=== PATIENT | male | born 1945 | race Caucasian/White ===

== ENCOUNTER 2016-05-11 17:39 | Emergency (ER) | payer MEDICARE, OTHER ==
[~2016-05-11] VITALS: Ht 182.9 cm; Wt 119.0 kg
[~2016-05-11 17:39] MED LIST: 1-ME1LIQ PO; ALBU8I INH; ASPI325T PO; ATEN-100 PO; ATOR40TA PO; AZEL0.05; CIAL5TAB PO; ENAL10TA7 PO; GABA300C3 PO; HYDR-3533 PO; LAMI250T PO; LANTUS2P SC; LOTRCRE TOP; MELO15TA2 PO; NOVOLOGP2 SQ; OMEP20TA39 PO; PROS5TAB2 PO; STAR120T PO; TERA5CAP3 PO; [UNRECOGNIZED DRUG - SUPPLY]
[2016-05-11 17:46] VITALS: BP 128/76; PULSE 87; RESP 20; TEMP 99.6; O2SAT 93
[2016-05-11] MEDS ORDERED: METF1000 PO (18:00)
[2016-05-11] MEDS ORDERED: ENAL20TA PO (18:00)
[2016-05-11] MEDS ORDERED: AMLO10TA2 PO (18:00)
[2016-05-11] MEDS ORDERED: ASPI325T PO (18:00)
[2016-05-11] MEDS ORDERED: ATEN25TA PO (18:00)
[2016-05-11] MEDS ORDERED: LANTUS2P SQ (18:00)
[2016-05-11] MEDS ORDERED: TERA5CAP3 PO (18:00)
[2016-05-11] MEDS ORDERED: ATOR40TA16 PO (18:00)
[2016-05-11] MEDS ORDERED: FINA5TAB2 PO (18:00)
[2016-05-11] MEDS ORDERED: SITA50 PO (18:00)
[2016-05-11] MEDS ORDERED: VENTAER INH (18:45)
[2016-05-11] MEDS ORDERED: ZITHTAB PO (18:45)
--- NOTE | 2016-05-11 18:50 | PD ---
HPI Chief Complaint: Cold / Flu Symptoms Time Seen by Provider: 18:02 Travel History International Travel<30 days: No Contact w/Intl Traveler<30days: No Traveled to known affect area: No History of Present Illness HPI This patient complains of cough and congestion and body aches. Duration 3 weeks. Severity is moderate. He is a smoker. No alleviating factors. PFSH Past Medical History Anxiety: No Depression: No Cancer: No Cardiac Catheterization: Yes (STENT 2000) Cardiovascular Problems: Yes High Cholesterol: Yes Chest Pain: Yes Coronary Artery Disease: Yes Diabetes: Yes Patient Takes Glucophage: Yes Diminished Hearing: No Endocrine: Yes Gastrointestinal Disorders: Yes (DIVERTICULOSIS) Genitourinary: Yes (FREQUENCY) Hypertension: Yes Immune Disorder: No Implanted Vascular Access Dvce: Yes Musculoskeletal: Yes Neurologic: No Psychiatric: No Reproductive: No Respiratory: Yes PNEUMOCCOCAL Vaccine (Year): 1 Past Surgical History Body Medical Devices: CARDIAC STENT Cardiac Surgery: Yes (CARDIAC STENT 1999) Coronary Stent: Yes Oral Surgery: Yes (EDENTURELESS) Thoracic Surgery: Yes (AAA 11/2010) Other Surgery: Yes Social History Alcohol Use: No Tobacco Use: Yes (/2 PPD) Substance Use: No Allergies-Medications (Allergen,Severity, Reaction): Coded Allergies: No Known Allergies (Verified , 05/11/16) Reported Meds & Prescriptions Reported Meds & Active Scripts Active Zithromax Z-Dung (Azithromycin) 250 Mg Dspk 250 Mg PO DIRECTED 500 MG (2 tabs) day 1, then 1 tab days 2-5. Ventolin Hfa 18 GM Inh (Albuterol Sulfate) 90 Mcg/Act Aer 1 Puff INH Q4H PRN Reported Lantus Inj (Insulin Glargine) 1,000 Unit/10 Ml Vial 30 Units SQ BID Metformin (Metformin HCl) 1,000 Mg Tab 1,500 Mg PO DAILY With a meal Terazosin (Terazosin HCl) 5 Mg Cap 5 Mg PO HS Atorvastatin (Atorvastatin Calcium) 40 Mg Tab 40 Mg PO HS Finasteride 5 Mg Tab 5 Mg PO DAILY Do not crush. Januvia (Sitagliptin Phosphate) 50 Mg Tab 50 Mg PO DAILY Aspirin 325 Mg Tab 325 Mg PO DAILY Enalapril (Enalapril Maleate) 20 Mg Tab 20 Mg PO DAILY Amlodipine (Amlodipine Besylate) 10 Mg Tab 10 Mg PO DAILY Atenolol 25 Mg Tab 12.5 Mg PO BID Review of Systems General / Constitutional: No: Fever HENT: No: Headaches Cardiovascular: No: Chest Pain or Discomfort Respiratory: Positive: Cough Gastrointestinal: No: Vomiting Physical Exam Narrative CARDIOVASCULAR: Regular rate and rhythm without murmur. Extremities showed no edema or varicosities. SKIN: Inspection shows no rash or ulcers. Palpation shows no induration or nodules. NECK: Symmetrical appearance, midline trachea. No mass or crepitus. Thyroid without enlargement, tenderness, or mass. RESPIRATORY: Respiratory effort unlabored, no retractions or use of accessory muscles. Breath sounds reveal some rhonchi and are symmetric. Data Data Last Documented VS Vital Signs Date Time Temp Pulse Resp B/P Pulse Ox O2 Delivery O2 Flow Rate FiO2 05/11/16 17:46 99.6 87 20 128/76 93 MDM Medical Decision Making Medical Screen Exam Complete: Yes Emergency Medical Condition: Yes Medical Record Reviewed: Yes Differential Diagnosis Bronchitis, COPD, URI Narrative Course I have reviewed the patient's electronic medical record. I wrote him a Z-Dung and an albuterol inhaler. He needs to quit smoking. Stable for outpatient follow-up Has a bronchitis type of picture Diagnosis Primary Impression: Acute bronchitis Qualified Code: J20.9 - Acute bronchitis, unspecified organism Additional Instructions: The patient was advised to follow up with their physician and return if they worsen. Quit smoking Med/Other Pt SpecificInfo: Prescription(s) given Scripts Azithromycin (Zithromax Z-Dung)250 Mg [id number] Mg PO DIRECTED #1 DSPK Ref 0 500 MG (2 tabs) day 1, then 1 tab days 2-5. Prov:Sreekanth Burnham MD 05/11/16 Albuterol 18 GM Inh (Ventolin Hfa 18 GM Inh)90 Mcg/Act Aer1 Puff INH Q4H PRN ( SHORTNESS OF BREATH) #1 INHALER Ref 0 Prov:Sreekanth Burnham MD 05/11/16 Disposition: 01 DISCHARGE HOME Condition: Stable Sreekanth Burnham MD May 11, 2016 18:50
== END 2016-05-11 19:11 | disposition home or self-care (01) ==
LOC: PHED 17:39
DX: J20.9 Acute bronchitis, unspecified (principal); E78.00 Pure hypercholesterolemia, unspecified; E11.9 Type 2 diabetes mellitus without complications; I10 Essential (primary) hypertension; Z79.4 Long term (current) use of insulin
CPT/HCPCS: 99283